=== PATIENT | female | born 1960 | race Two or more races ===

== ENCOUNTER → 2023-12-19 | Outpatient (CLI) | payer MEDICARE, BC, SELFPAY ==
[2023-12-19 15:00] LABS: Influenza A Ag Negative; Influenza B Ag Negative
== END | disposition home or self-care (01) ==
LOC: SLDO 11:52
PROVIDERS: PCP Specialist; Referring Provider Specialist; Visit Provider Specialist
DX: R05.8 Other specified cough (principal); Z20.828 Contact with and (suspected) exposure to other viral communicable diseases
CPT/HCPCS: 87502

== ENCOUNTER 2023-12-21 10:57 | Emergency (ER) | payer MEDICARE, BC, SELFPAY ==
[2023-12-21] VITALS (11 sets, daily range): BP systolic 161–214; BP diastolic 79–88; PULSE 64–73; RESP 16–22; TEMP 36.7–37.7; O2SAT 96–100; BMI 24.4
--- NOTE | 2023-12-21 11:33 | PD.EDRME ---
Rapid Medical Screening Exam RME Arrival date/time: 12/21/23 10:57 63-year-old female presents to the emergency department with complaints of low hemoglobin sent over by her dialysis center for possible blood transfusion. I have greeted and performed a focused initial assessment of this patient. Initial appropriate labs ordered at this time. A comprehensive ED assessment and evaluation of the patient and analysis of all test and completion of medical decision making process will be conducted by additional ED provider. Chief Complaint: Recheck/Abnormal Lab/Rx Time Seen by Provider: 12/21/23 11:02 Vital signs: Vital Signs Temperature 98.1 F 12/21/23 11:11 Pulse Rate 73 12/21/23 11:11 Respiratory Rate 19 12/21/23 11:11 Blood Pressure 165/80 H 12/21/23 11:11 Pulse Oximetry (%) 96 12/21/23 11:11 Oxygen Delivery Method Room Air 12/21/23 11:11
[2023-12-21 11:47] LABS: Basophils % (Auto) 0 % (0-2.5); Eosinophils # (Auto) 0.1 Thou/mm3 (0.0-0.5); Eosinophils % (Auto) 2 % (0-10); Immature Granulocytes % (Auto) 0 % (0-0); Immature Granulocytes Auto 0.02 Thou/mm3 (0.00-0.00); Lymphocytes # (Auto) 0.7 Thou/mm3 (1.0-4.8); Lymphocytes % (Auto) 10 % (10-50); Mean Corpuscular HGB Conc 33.3 g/dl (31.0-37.0); Mean Corpuscular Hemoglobin 31.3 pg (25.0-35.0); Mean Corpuscular Volume 94 fL (80-100); Monocytes # (Auto) 0.7 Thou/mm3 (0.0-0.8); Monocytes % (Auto) 10 % (0-12); Neutrophils # (Auto) 5.3 Thou/mm3 (1.8-7.7); Neutrophils % (Auto) 77 % (37-80); Nucleated Red Blood Cell % 0 /100 WBC (0); Platelet Count 143 Thou/mm3 (140-440); RDW Standard Deviation 45.8 fL (36.4-46.3); Red Blood Count 2.24 Miln/mm3 (4.00-5.20); White Blood Count 6.9 Thou/mm3 (3.6-11.0)
[2023-12-21 12:02] LABS: INR 1.1 (0.9-1.3); Prothrombin Time 12.4 Seconds (9.0-12.2)
[2023-12-21 12:06] LABS: Alanine Aminotransferase 37 U/L (10-49); Albumin, Serum 4.7 gm/dL (3.4-4.8); Albumin/Globulin Ratio 2.4 (1.2-2.2); Alkaline Phosphatase 66 U/L (46-116); Anion Gap 8 (7-16); Aspartate Amino Transferase 27 U/L (0-34); BUN/Creatinine Ratio 5 Ratio (12-20); Bilirubin,Total 0.7 mg/dL (0.3-1.2); Blood Urea Nitrogen 41 mg/dL (9-23); Calcium 9.4 mg/dL (8.3-10.6); Calcium (Corrected) 9.4 mg/dL (8.5-10.1); Carbon Dioxide 32.5 mMol/L (20.0-31.0); Chloride 99 mMol/L (98-107); Creatinine (Component) 8.8 mg/dL (0.6-1.3); Glucose 112 mg/dL (74-106); Osmolality,Calculated 288 (275-295); Sodium 139 mMol/L (136-145); Total Protein 6.7 gm/dL (5.7-8.2); eGFR 5 See Note
--- NOTE | 2023-12-21 12:25 | PD.EDRECHK ---
ED Recheck Abnl Lab Rx-RME/HPI General Chief Complaint: Recheck/Abnormal Lab/Rx Stated Complaint: LOW HGB Time Seen by Provider: 12/21/23 11:02 Arrival date/time: 12/21/23 10:57 RME / HPI RME / HPI narrative: 63-year-old female patient with significant history of hypertension end-stage renal disease on hemodialysis, was brought in by family for evaluation regarding request for blood transfusion. Patient had hemodialysis yesterday, and was advised to come to the emergency room today because his hemoglobin yesterday was noted to be 6.6. Patient complained of easy fatigability. Patient denies any shortness of breath. Patient denies any vomiting blood or blood in the stool. Related Data Home Medications ?Medication ?Instructions ?Recorded ?Confirmed montelukast 10 mg tablet 10 mg PO HS #0 tabs 04/10/15 12/15/22 (Singulair) zolpidem 5 mg tablet (Ambien) 5 mg PO HS #0 tabs 04/10/15 12/15/22 sevelamer carbonate 800 mg tablet 1,600 mg PO TIDWM #0 tabs 11/25/15 12/15/22 (Renvela) lidocaine 4 % topical cream 5 gm TP MWF ##0 08/25/16 12/15/22 metoprolol succinate 50 mg 50 mg PO BID ##0 08/25/16 12/15/22 tablet,extended release 24 hr (Toprol XL) albuterol sulfate 90 mcg/actuation 90 mcg IH PRN PRN SHORTNESS OF 10/12/16 12/15/22 breath activated powder inhaler BREATH ##0 (ProAir RespiClick) atorvastatin 40 mg tablet (Lipitor) 40 mg PO HS #0 tabs 10/12/16 12/15/22 Lactobacillus acidophilus 10 10,000 mmu cells PO QDAY 08/19/20 12/15/22 billion cell capsule (Probiotic) azilsartan medoxomil 40 1 tab PO QDAY 08/19/20 12/15/22 mg-chlorthalidone 25 mg tablet (Edarbyclor) cholecalciferol (vitamin D3) 25 25 mcg PO QDAY 08/19/20 12/15/22 mcg (1,000 unit) capsule (Vitamin D3) clonidine HCl 0.1 mg tablet 0.1 mg PO DAILY 08/19/20 12/15/22 dexlansoprazole 60 mg 60 mg PO DAILY 08/19/20 12/15/22 capsule,biphase delayed release (Dexilant) levothyroxine 50 mcg tablet 50 mcg PO DAILY 08/19/20 12/15/22 lorazepam 0.5 mg tablet 0.5 mg PO Q8HR PRN Anxiety 08/19/20 12/15/22 methylcellulose (with sugar) oral 1 ea PO PRN PRN Constipation 08/19/20 12/15/22 powder packet simethicone 180 mg capsule (Gas-X 180 mg PO QID PRN Heartburn 08/19/20 12/15/22 Ultra-Strength) amlodipine 5 mg tablet 5 mg PO HS 10/06/22 12/15/22 cyclosporine 0.05 % eye drops in a 1 drp ophthalmic (eye) PRN PRN Dry 10/06/22 12/15/22 dropperette (Restasis) Eye(S) levocetirizine 5 mg tablet (Xyzal) 5 mg PO QDAY 10/06/22 12/15/22 ropinirole 0.5 mg tablet 0.5 mg PO HS PRN Restless Leg(S) 10/06/22 12/15/22 folic acid 1 mg tablet 1 mg PO QDAY 12/15/22 12/15/22 vitamin B complex-vitamin C-folic 1 tab PO USEASDIRECTD 12/15/22 12/15/22 acid 0.8 mg tablet (Damaris-Mauricio) Allergies Allergy/AdvReac Type Severity Reaction Status Date / Time adhesive tape Allergy Mild Itching Verified 12/15/22 08:18 hydralazine Allergy Verified 12/15/22 08:18 ondansetron [From Zofran] Allergy Verified 12/15/22 08:18 Review of Systems Review of Systems Narrative Review of Systems: Review of system reviewed and within normal limits except mentioned in HPI ED Exam Narrative Physical exam: VITAL SIGNS: Reviewed. GENERAL APPEARANCE: Alert and interactive, follows commands, no acute distress, HEAD AND FACE: Non-traumatic. ENT: PERRL, pale conjunctiva, eyelid no trauma, NECK: Supple, nontender, no nuchal rigidity. CHEST: No tenderness, no crepitus, no paradoxical movement, no retractions. LUNGS: Clear, well ventilated, symmetric, no rales, no wheezing, no ronchi, no stridor, good breath sounds bilaterally. HEART: Regular rate, regular rhythm, no murmur, no gallops. RECTAL: Deferred. GENITAL: Deferred. NEUROLOGICAL: Gross motor function intact sensory function intact, Appropriate for age. MUSCULOSKELETAL: low back nontender, full range of motion. EXTREMITIES: Nontender, full range of motion. SKIN: Color pale, dry, no rash, no lacerations, no abrasions, no contusions. LYMPHATICS: Deferred. Course Quality Measures none Orders Category Date Time Status Transfuse,blood/blood products ONCE Care 12/21/23 12:24 Active CBC Stat Lab 12/21/23 11:38 Completed CMP [Comprehensive Metabolic Panel] Stat Lab 12/21/23 11:38 Completed PT [Prothrombin Time with INR] Stat Lab 12/21/23 11:38 Completed Type and Screen Stat Lab 12/21/23 11:38 Completed prbc [Red Blood Cells] Stat Lab 12/21/23 11:38 Completed Metoclopramide [Reglan] Med 12/21/23 20:58 Discontinued 10 mg PO X1 ONE Metoprolol Succinate Xl [Toprol Xl] Med 12/21/23 20:43 Discontinued 50 mg PO X1 ONE amLODIPine BESYLATE [Norvasc] Med 12/21/23 20:43 Discontinued 5 mg PO X1 ONE cloNIDine HCL [Catapres] Med 12/21/23 18:03 Discontinued 0.2 mg PO X1 ONE Vital Signs Vital signs: Vital Signs Temperature 98.1 F 12/21/23 11:11 Pulse Rate 73 12/21/23 11:11 Respiratory Rate 19 12/21/23 11:11 Blood Pressure 165/80 H 12/21/23 11:11 Pulse Oximetry (%) 96 12/21/23 11:11 Oxygen Delivery Method Room Air 12/21/23 11:11 Recheck / Abnormal Lab / Rx Patient data External records reviewed:: None Clinical information provided by:: none Social determinants that could affect healthcare access:: none Patient has the following chronic illnesses:: ESRD How is presenting disease/condition affected by chronic disease/condition?: exacerbated by Evaluation data The following diagnostics were reviewed and interpreted by me:: lab results Lab and/or radiology exams considered but not ordered:: None Interpretation Summary: Patient's hemoglobin was noted to be 7.0. The rest of the labs is significant for end-stage renal disease potassium is normal Medications / Prescriptions Medications or Prescriptions considered but not ordered:: none Medication administrations:: Medication Administration History Discontinued Medications Amlodipine Besylate (Amlodipine Besylate 5 Mg Tablet) 5 mg PO X1 ONE Stop: 12/21/23 20:44 Last Admin: 12/21/23 20:54 Dose: 5 mg Documented By: DD Clonidine (Clonidine Hcl 0.1 Mg Tablet) 0.2 mg PO X1 ONE Stop: 12/21/23 18:04 Last Admin: 12/21/23 19:06 Dose: 0.2 mg Documented By: DD Metoclopramide HCl (Metoclopramide 5 Mg Tablet) 10 mg PO X1 ONE Stop: 12/21/23 20:59 Last Admin: 12/21/23 21:05 Dose: 10 mg Documented By: DD Metoprolol Succinate (Metoprolol Succinate Xl 25 Mg Tabcr) 50 mg PO X1 ONE Stop: 12/21/23 20:44 Last Admin: 12/21/23 20:54 Dose: 50 mg Documented By: DD Patient received 2 units of packed RBC. Patient was also given amlodipine and clonidine Reglan and metoprolol. Consultations Consultation(s) initiated? (list below): No Diagnosis Recheck Differential Diagnosis: other (Anemia of chronic disease, hypertension, iron deficiency anemia) Most likely diagnosis given after review of the tests above:: Anemia of chronic disease Admission Indicated Admission indicated?: not indicated Admission Request Was there a request for admission?: No Disposition Plan Disposition Plan: Discharge Discharge Attestation Discharge Attestation: The patient was given an opportunity to ask questions and understood the discharge instructions. Discharge instructions specifically effects, indications for sooner follow up or return to the emergency department, and the expected course of current diagnosis. Patient condition: Stable Discharge Plan Plan Patient Disposition: HOME (Self Care) Disposition Comment: stable Prescriptions/Referrals Prescriptions/Med Rec: No Action montelukast [Singulair] 10 MG tablet 10 mg PO HS Qty: 0 Rx Instructions: TAKES ON T, JOES, SAT, SUN zolpidem [Ambien] 5 MG tablet 5 mg PO HS Qty: 0 Hold Instructions: Resume on 12/16/22. sevelamer carbonate [Renvela] 800 MG tablet 1,600 mg PO TIDWM Qty: 0 metoprolol succinate [Toprol XL] 50 MG tablet extended release 24 hr 50 mg PO BID Qty: 0 lidocaine 5 GM cream 5 gm TP MWF Qty: 0 atorvastatin [Lipitor] 40 MG tablet 40 mg PO HS Qty: 0 ProAir RespiClick 90 MCG aerosol powdr breath activated 90 mcg IH PRN PRN (Reason: SHORTNESS OF BREATH) Qty: 0 clonidine HCl 0.1 mg tablet 0.1 mg PO DAILY simethicone [Gas-X Ultra-Strength] 180 mg Capsule 180 mg PO QID PRN (Reason: Heartburn) lorazepam 0.5 mg tablet 0.5 mg PO Q8HR PRN (Reason: Anxiety) Hold Instructions: Resume on 12/16/22. Patient Comments: TAKE 1 TABLET BY MOUTH EVERY 8 HOURS NEEDED FOR ANXIETY (NO AMBIEN ON THE SAME DAY ) levothyroxine 50 mcg tablet 50 mcg PO DAILY Patient Comments: TAKE 1 TABLET BY MOUTH EVERY DAY cholecalciferol (vitamin D3) [Vitamin D3] 25 mcg (1,000 unit) Capsule 25 mcg PO QDAY Rx Instructions: methylcellulose (with sugar) Powder In Packet 1 ea PO PRN PRN (Reason: Constipation) dexlansoprazole [Dexilant] 60 mg capsule,biphase delayed releas 60 mg PO DAILY Edarbyclor 40-25 mg Tablet 1 tab PO QDAY Probiotic 10 billion cell Capsule 10,000 mmu cells PO QDAY amlodipine 5 mg Tablet 5 mg PO HS ropinirole 0.5 mg Tablet 0.5 mg PO HS PRN (Reason: Restless Leg(S)) cyclosporine [Restasis] 0.05 % Dropperette 1 drp OPHTHALMIC (EYE) PRN PRN (Reason: Dry Eye(S)) Rx Instructions: both eyes levocetirizine [Xyzal] 5 mg Tablet 5 mg PO QDAY Patient Comments: folic acid 1 mg tablet 1 mg PO QDAY Patient Comments: TAKE 1 TABLET BY MOUTH EVERY DAY Damaris-Mauricio 0.8 mg tablet 1 tab PO USEASDIRECTD Patient Comments: TAKE 1 TABLET BY MOUTH EVERY DAY Rx Instructions: Referrals: Rayray Elias MD [Primary Care Provider] - In 1 week Problem List Clinical Impression: Anemia Patient/Caregiver Discharge Instructions Discharge Activity: activity as tolerated Education Materials: Anemia Additional Instructions: Thank you for the opportunity for serving you today. You are stable for discharged . You are advised to: Follow-up with your PCP in 1 to 2 days Return to ED for worsening of symptoms Print Language: Liberian Stand Alone Forms: Bhumi Award Info., Patient Portal Info Letter PA/DIRECTOR BEHAVIORAL HEALTH Supervising Physician PA/DIRECTOR BEHAVIORAL HEALTH Supervising Physician: MD Juan Pablo
[2023-12-21] MEDS: cloNIDine HCL 0.1 MG TABLET 0.2 MG PO (19:06)
[2023-12-21] MEDS: METOPROLOL SUCCINATE XL 25 MG TABCR 50 MG PO (20:54)
[2023-12-21] MEDS: amLODIPine BESYLATE 5 MG TABLET PO (20:54)
[2023-12-21] MEDS: METOCLOPRAMIDE 5 MG TABLET 10 MG PO (21:05)
== END 2023-12-21 22:49 | disposition home or self-care (01) ==
PROVIDERS: Nurse Practitioner Primary Care; Emergency Provider Emergency Medicine; PCP Specialist
DX: I12.0 Hypertensive chronic kidney disease with stage 5 chronic kidney disease or end stage renal disease (principal); N18.6 End stage renal disease; D63.1 Anemia in chronic kidney disease; Z99.2 Dependence on renal dialysis
CPT/HCPCS: 36415; 36430; 80053; 85025; 85610; 86850; 86900; 86901; 86923; 99285; P9016; A9270

== ENCOUNTER → 2024-04-09 | Outpatient (CLI) | payer MEDICARE, SELFPAY ==
[2024-04-09 13:09] LABS: Influenza A Ag Negative; Influenza B Ag Negative
== END | disposition home or self-care (01) ==
LOC: SLDO 11:36
PROVIDERS: Referring Provider Specialist; Visit Provider Specialist
DX: R05.9 Cough, unspecified (principal)
CPT/HCPCS: 87502

== ENCOUNTER → 2024-04-10 | Outpatient (CLI) | payer MEDICARE, BC, SELFPAY ==
--- NOTE | 2024-04-10 13:13 | XR_ITS ---
Examination: PA lateral chest 2 views TECHNIQUE: Upright PA lateral chest 2 views Exam date and time: April 10, 2024 1347 hours INDICATIONS: Shortness of breath beginning 3 weeks ago. FINDINGS: Mild enlargement cardiac contour Prominent central vascular engorgement Moderate bilateral pleural effusions No lobar pneumonia IMPRESSION: Moderate bilateral pleural effusions
[2024-04-10 14:28] LABS: Basophils # (Auto) 0.1 Thou/mm3 (0.0-0.2); Basophils % (Auto) 1 % (0-2.5); Eosinophils # (Auto) 0.1 Thou/mm3 (0.0-0.5); Eosinophils % (Auto) 2 % (0-10); Hematocrit 31.6 % (36.0-46.0); Immature Granulocytes % (Auto) 0 % (0-0); Immature Granulocytes Auto 0.03 Thou/mm3 (0.00-0.00); Lymphocytes # (Auto) 0.7 Thou/mm3 (1.0-4.8); Lymphocytes % (Auto) 9 % (10-50); Mean Corpuscular HGB Conc 31.6 g/dl (31.0-37.0); Mean Corpuscular Volume 95 fL (80-100); Monocytes # (Auto) 0.6 Thou/mm3 (0.0-0.8); Monocytes % (Auto) 8 % (0-12); Neutrophils # (Auto) 5.9 Thou/mm3 (1.8-7.7); Neutrophils % (Auto) 80 % (37-80); Nucleated Red Blood Cell % 0 /100 WBC (0); Platelet Count 235 Thou/mm3 (140-440); RDW Standard Deviation 52.4 fL (36.4-46.3); Red Blood Count 3.33 Miln/mm3 (4.00-5.20); White Blood Count 7.4 Thou/mm3 (3.6-11.0)
[2024-04-10 14:49] LABS: D-Dimer < 250 ng/mL (<600)
[2024-04-10 14:50] LABS: B-Type Natriuretic Peptide 3159 pg/mL (0-100)
[2024-04-10 14:52] LABS: Alanine Aminotransferase 50 U/L (10-49); Albumin, Serum 4.6 gm/dL (3.4-4.8); Albumin/Globulin Ratio 2.9 (1.2-2.2); Alkaline Phosphatase 106 U/L (46-116); Anion Gap 8 (7-16); Aspartate Amino Transferase 40 U/L (0-34); BUN/Creatinine Ratio 3 Ratio (12-20); Bilirubin,Total 0.8 mg/dL (0.3-1.2); Blood Urea Nitrogen 14 mg/dL (9-23); Calcium 10.2 mg/dL (8.3-10.6); Calcium (Corrected) 10.2 mg/dL (8.5-10.1); Carbon Dioxide 35.4 mMol/L (20.0-31.0); Chloride 103 mMol/L (98-107); Creatinine (Component) 4.3 mg/dL (0.6-1.3); Globulin 1.6 gm/dL (2.3-3.5); Glucose 101 mg/dL (74-106); Osmolality,Calculated 291 (275-295); Sodium 146 mMol/L (136-145); Total Protein 6.2 gm/dL (5.7-8.2); Troponin I 0.021 ng/mL (0.0-0.045); eGFR 11 See Note
== END | disposition home or self-care (01) ==
LOC: COPL 13:03
PROVIDERS: PCP Specialist; Referring Provider Specialist; Visit Provider Specialist
DX: J90 Pleural effusion, not elsewhere classified (principal)
CPT/HCPCS: 36415; 71046; 80053; 80061; 83880; 84484; 85025; 85379

== ENCOUNTER → 2024-04-16 | Outpatient (CLI) | payer MEDICARE, BC, SELFPAY ==
--- NOTE | 2024-04-16 15:00 | XR_ITS ---
Examination: CT chest, without intravenous contrast. Sagittal and coronal 2-D reconstructions. Exam date and time: April 16, 2024 1512 hrs. Indications: Shortness of breath beginning one month ago CTDI:vol (mGy) 7.46 DLP: (mGycm) 266 Technique: Multiple 3.0 mm axial sections of the chest to been obtained. Bone and lung density settings are obtained. Sagittal and coronal 2-D reconstructions have been obtained. Low dose protocols were performed. One or more of the following dose reduction techniques were used; automated exposure control, adjustment of the mA and/or KV according to patient size, use of iterative reconstruction technique. Findings: No thoracic aortic cage is no dilatation Main pulmonary artery segment 33 mm No paratracheal tracheobronchial or bronchopulmonary adenopathy Moderate vascular congestion Bibasilar pneumonia with moderate right mild left pleural effusions Mild enlargement cardiac contour No visualized liver or splenic lesion Absent gallbladder End-stage atrophic kidneys Impression: Mild chronic heart failure pattern Bibasilar pneumonia with moderate right mild left pleural effusions
== END | disposition home or self-care (01) ==
PROVIDERS: Referring Provider Internal Medicine Rheumatology; Visit Provider Internal Medicine Rheumatology
DX: J84.9 Interstitial pulmonary disease, unspecified (principal)
CPT/HCPCS: 71250

== ENCOUNTER → 2024-05-07 | Outpatient (CLI) | payer MEDICARE, BC, SELFPAY ==
--- NOTE | 2024-05-07 | XR_ITS ---
Examination: PA lateral chest 2 views TECHNIQUE: Upright PA lateral chest 2 views Exam date and time: May 07, 2024 1238 hours Comparison April 10, 2024 INDICATIONS: Coughing congestion beginning 6 weeks ago. FINDINGS: Mild chronic heart failure pattern Mild enlargement left ventricle Prominent vascular congestion with small to moderate bilateral pleural effusions No pneumonia IMPRESSION: Mild chronic heart failure pattern
[2024-05-07 13:30] LABS: B-Type Natriuretic Peptide 2332 pg/mL (0-100)
== END | disposition home or self-care (01) ==
LOC: CDIM 11:54 → COPL 12:43
PROVIDERS: PCP Specialist; Referring Provider Specialist; Visit Provider Specialist
DX: I50.9 Heart failure, unspecified (principal); R06.02 Shortness of breath
CPT/HCPCS: 36415; 71046; 83880

== ENCOUNTER → 2024-05-27 | Outpatient (CLI) | payer MEDICARE, BC, SELFPAY ==
--- NOTE | 2024-05-27 12:08 | XR_ITS ---
Examination: PA lateral chest 2 views TECHNIQUE: Upright PA lateral chest 2 views Exam date and time: May 27, 2024 1319 hours Comparison May 07, 2024 INDICATIONS: Coughing beginning 2 days ago. FINDINGS: Mild enlargement cardiac contour Prominent pulmonary vasculature Mild pneumonia left base with small left pleural effusion IMPRESSION: Mild pneumonia left base
[2024-05-27 14:40] LABS: Basophils # (Auto) 0.1 Thou/mm3 (0.0-0.2); Basophils % (Auto) 1 % (0-2.5); Eosinophils # (Auto) 0.3 Thou/mm3 (0.0-0.5); Eosinophils % (Auto) 3 % (0-10); Hematocrit 33.2 % (36.0-46.0); Hemoglobin 10.7 g/dL (12.0-16.0); Immature Granulocytes % (Auto) 1 % (0-0); Immature Granulocytes Auto 0.09 Thou/mm3 (0.00-0.00); Lymphocytes # (Auto) 0.9 Thou/mm3 (1.0-4.8); Lymphocytes % (Auto) 8 % (10-50); Mean Corpuscular HGB Conc 32.2 g/dl (31.0-37.0); Mean Corpuscular Hemoglobin 29.2 pg (25.0-35.0); Mean Corpuscular Volume 91 fL (80-100); Monocytes # (Auto) 1.4 Thou/mm3 (0.0-0.8); Monocytes % (Auto) 12 % (0-12); Neutrophils # (Auto) 8.5 Thou/mm3 (1.8-7.7); Neutrophils % (Auto) 76 % (37-80); Nucleated Red Blood Cell % 0 /100 WBC (0); Platelet Count 223 Thou/mm3 (140-440); RDW Standard Deviation 57.6 fL (36.4-46.3); Red Blood Count 3.66 Miln/mm3 (4.00-5.20); White Blood Count 11.3 Thou/mm3 (3.6-11.0)
[2024-05-27 14:47] LABS: Alanine Aminotransferase 54 U/L (10-49); Albumin, Serum 4.7 gm/dL (3.4-4.8); Alkaline Phosphatase 125 U/L (46-116); Anion Gap 13 (7-16); Aspartate Amino Transferase 43 U/L (0-34); BUN/Creatinine Ratio 4 Ratio (12-20); Bilirubin,Total 0.8 mg/dL (0.3-1.2); Blood Urea Nitrogen 36 mg/dL (9-23); Calcium 9.6 mg/dL (8.3-10.6); Calcium (Corrected) 9.6 mg/dL (8.5-10.1); Carbon Dioxide 28.8 mMol/L (20.0-31.0); Chloride 98 mMol/L (98-107); Creatinine (Component) 8.5 mg/dL (0.6-1.3); Globulin 2.3 gm/dL (2.3-3.5); Glucose 104 mg/dL (74-106); Osmolality,Calculated 287 (275-295); Potassium 3.3 mMol/L (3.4-5.1); Sodium 140 mMol/L (136-145); eGFR 5 See Note
== END | disposition home or self-care (01) ==
LOC: CDIM 11:59 → COPL 13:30
PROVIDERS: PCP Specialist; Referring Provider Specialist; Visit Provider Specialist
DX: N18.6 End stage renal disease (principal); Z99.2 Dependence on renal dialysis
CPT/HCPCS: 36415; 71046; 80053; 83880; 85025

== ENCOUNTER → 2024-08-13 | Outpatient (CLI) | payer MEDICARE, BC, SELFPAY ==
--- NOTE | 2024-08-13 | XR_ITS ---
Examination: Abdomen AP single view Technique: AP portable supine abdomen, single view Exam date and time: August 13, 2024 1107 hours INDICATIONS: Abdominal pain bloating tenderness and diarrhea several years FINDINGS: Large mesencephalic: No obstruction. No free air. Surgical clips upper right abdomen IMPRESSION: Large amount stool throughout the colon
[2024-08-13 12:28] LABS: Basophils # (Auto) 0.1 Thou/mm3 (0.0-0.2); Basophils % (Auto) 2 % (0-2.5); Eosinophils # (Auto) 0.3 Thou/mm3 (0.0-0.5); Eosinophils % (Auto) 5 % (0-10); Hematocrit 42.7 % (36.0-46.0); Hemoglobin 14.1 g/dL (12.0-16.0); Immature Granulocytes Auto 0.01 Thou/mm3 (0.00-0.00); Lymphocytes # (Auto) 0.9 Thou/mm3 (1.0-4.8); Lymphocytes % (Auto) 19 % (10-50); Mean Corpuscular HGB Conc 33.0 g/dl (31.0-37.0); Mean Corpuscular Hemoglobin 29.5 pg (25.0-35.0); Mean Corpuscular Volume 89 fL (80-100); Monocytes # (Auto) 0.6 Thou/mm3 (0.0-0.8); Monocytes % (Auto) 11 % (0-12); Neutrophils # (Auto) 3.2 Thou/mm3 (1.8-7.7); Neutrophils % (Auto) 63 % (37-80); Nucleated Red Blood Cell # 0.00 Thou/mm3 (0.00-0.00); Nucleated Red Blood Cell % 0 /100 WBC (0); Platelet Count 103 Thou/mm3 (140-440); RDW Standard Deviation 52.3 fL (36.4-46.3); Red Blood Count 4.78 Miln/mm3 (4.00-5.20); White Blood Count 5.0 Thou/mm3 (3.6-11.0)
[2024-08-13 12:47] LABS: Alanine Aminotransferase 43 U/L (10-49); Albumin, Serum 4.3 gm/dL (3.4-4.8); Albumin/Globulin Ratio 1.0 (1.2-2.2); Alkaline Phosphatase 85 U/L (46-116); Amylase 175 U/L (30-118); Anion Gap 13 (7-16); Aspartate Amino Transferase 49 U/L (0-34); BUN/Creatinine Ratio 5 Ratio (12-20); Bilirubin,Total 0.5 mg/dL (0.3-1.2); Blood Urea Nitrogen 28 mg/dL (9-23); Calcium 10.3 mg/dL (8.3-10.6); Calcium (Corrected) 10.3 mg/dL (8.5-10.1); Carbon Dioxide 30.7 mMol/L (20.0-31.0); Chloride 97 mMol/L (98-107); Creatinine (Component) 6.2 mg/dL (0.6-1.3); Globulin 4.4 gm/dL (2.3-3.5); Glucose 100 mg/dL (74-106); Lipase 99 U/L (12-53); Osmolality,Calculated 286 (275-295); Potassium 4.1 mMol/L (3.4-5.1); Sodium 141 mMol/L (136-145); Total Protein 8.7 gm/dL (5.7-8.2); eGFR 7 See Note
== END | disposition home or self-care (01) ==
LOC: CDIM 10:57 → COPL 11:25
PROVIDERS: PCP Specialist; Referring Provider Specialist; Visit Provider Specialist
DX: K59.00 Constipation, unspecified (principal); E78.5 Hyperlipidemia, unspecified
CPT/HCPCS: 36415; 74018; 80053; 81001; 82150; 83690; 85025

== ENCOUNTER → 2024-08-14 | Outpatient (CLI) | payer MEDICARE, BC, SELFPAY ==
[2024-08-14 13:39] LABS: Collection Type, Urine Clean Catch
[2024-08-14 14:49] LABS: Bacteria,Urine Rare; Bilirubin,Urine Negative (Negative); Blood,Urine Negative (Negative); Clarity,Urine Turbid (Clear/Hazy); Color,Urine Lt-Yellow (Lt Yel-Yel); Glucose, Urine 1+ (Negative); Ketones,Urine Negative (Negative); Leukocyte Esterase,Urine Positive (Negative); Nitrite,Urine Negative (Negative); PH,Urine 8.5 (5.0-7.0); Protein,Urine 2+ (Neg - Trace); RBC,Urine 2 /hpf (0-3); Specific Gravity,Urine 1.007 (1.001-1.035); Squamous Epithelial Cell,Urine 1 /hpf (0-5); Urobilinogen,Urine Negative mg/dL (0.0-1.0); WBC,Urine 4 /hpf (0-5)
== END | disposition home or self-care (01) ==
LOC: SLDO 13:31
PROVIDERS: Referring Provider Specialist; Visit Provider Specialist
DX: E78.5 Hyperlipidemia, unspecified (principal)
CPT/HCPCS: 81001

== ENCOUNTER → 2024-08-29 | Outpatient (CLI) | payer MEDICARE, BC, SELFPAY ==
--- NOTE | 2024-08-29 14:30 | XR_ITS ---
Examination: Screening digital mammography, bilateral Computer aided detection 3-D breast Tomosynthesis, bilateral Date and time of exam: August 29, 2024 1425 hours Compared to mammograms dating to February 09, 2023 Indication: Screening Technique: Nonmagnified MLO, CC views of the breasts to been obtained, reconstructed from 3-D Tomosynthesis images. R2 computer aided detection program utilized for evaluation of suspicious masses and/or abnormal calcifications. 3-D Tomosynthesis images obtained. Findings: Scattered areas of fibroglandular density. More prominent microcalcifications upper outer quadrant right breast 10 mm nodule indistinct margins upper outer right breast Additional focus microcalcifications inner lower right breast Impression: BI-RADS Category 0: Incomplete: Additional imaging evaluation Recommend follow-up spot tomographic views of microcalcifications upper outer right breast and inner lower right breast Recommend follow-up spot tomographic views of 10 mm nodule indistinct margins upper outer right breast Recommend bilateral breast sonography follow-up to complete the workup
== END | disposition home or self-care (01) ==
PROVIDERS: PCP Specialist; Referring Provider Specialist; Visit Provider Specialist
DX: Z12.31 Encounter for screening mammogram for malignant neoplasm of breast (principal); N63.11 Unspecified lump in the right breast, upper outer quadrant; R92.0 Mammographic microcalcification found on diagnostic imaging of breast
CPT/HCPCS: 77063; 77067

== ENCOUNTER → 2024-09-03 | Outpatient (CLI) | payer MEDICARE, BC, SELFPAY ==
--- NOTE | 2024-09-03 09:27 | XR_ITS ---
Examination: Breast ultrasound complete, bilateral Date and time of exam: September 03, 2024, 0933 hours Mammogram August 29, 2024 10 mm nodule indistinct margins upper outer right breast Technique: Real-time grayscale ultrasonographic imaging bilateral breasts, including all 4 quadrants as well as nipple retroareolar and axillary regions. Findings: Sonographic images right breast 10:00 nodule spiculated margins 11 x 11 mm Sonographic images left breast No cystic or solid mass IMPRESSION: BI-RADS Category 4: Suspicious for malignancy Suspicious mass 10:00 position right breast Biopsy of this mass is needed to exclude breast carcinoma, the mass is amenable to ultrasound-guided breast biopsy for diagnosis
--- NOTE | 2024-09-03 09:29 | XR_ITS ---
Examination: Diagnostic digital mammography, unilateral, right Computer aided detection 3-D breast Tomosynthesis, unilateral Date and time of exam: September 03, 2024 0952 hours INDICATIONS: Mammogram August 29, 2024 microcalcifications upper outer right breast and inner lower right breast, 10 mm suspicious nodule upper outer right breast Technique: Nonmagnified MLO, CC views of the right breast have been obtained, reconstructed from 3-D Tomosynthesis images. R2 computer aided detection program utilized for evaluation of suspicious masses and/or abnormal calcifications. 3-D Tomosynthesis images obtained. Findings: Scattered areas of fibroglandular density. Suspicious nodule is confirmed upper outer right breast, also noted on the right breast sonogram today Scattered microcalcifications but no grouped suspicious microcalcifications Impression: BI-RADS category : Suspicious for malignancy Suspicious mass 11 mm upper outer right breast, also depicted on right breast sonogram today, biopsy is needed to exclude breast carcinoma, this mass is amenable to ultrasound-guided breast biopsy for diagnosis
== END | disposition home or self-care (01) ==
LOC: CDIM 09:07
PROVIDERS: PCP Specialist; Referring Provider Specialist; Visit Provider Specialist
DX: N63.11 Unspecified lump in the right breast, upper outer quadrant (principal); R92.8 Other abnormal and inconclusive findings on diagnostic imaging of breast
CPT/HCPCS: 76641; 77061; 77065; G0279

== ENCOUNTER → 2024-09-12 | Outpatient (CLI) | payer MEDICARE, BC, SELFPAY ==
--- NOTE | 2024-09-12 | XR_ITS ---
Examination: PA lateral chest 2 views TECHNIQUE: Upright PA lateral chest 2 views Date and time: September 12, 2024 12:11 PM INDICATIONS: Shortness of breath 8 months. FINDINGS: Mild enlargement cardiac contour Prominent vascular congestion No lobar pneumonia or pulmonary edema Prominent osteopenia Right internal jugular Port-A-Cath tip SVC satisfactory position IMPRESSION: Moderate vascular congestion Suspicious for pulmonary artery hypertension
== END | disposition home or self-care (01) ==
LOC: CDIM 11:30
PROVIDERS: PCP Specialist; Referring Provider Specialist; Visit Provider Specialist
DX: R09.89 Other specified symptoms and signs involving the circulatory and respiratory systems (principal)
CPT/HCPCS: 71046

== ENCOUNTER → 2024-09-24 | Outpatient (CLI) | payer MEDICARE, BC, SELFPAY ==
--- NOTE | 2024-09-24 15:59 | XR_ITS ---
MRI abdomen, without contrast. MRCP Date and time of exam: September 23, 2024 1647 hours INDICATIONS: Upper abdominal pain bloating distention beginning 2010, enlarged common hepatic duct on MRCP September 16, 2021 Technique: Multiple axial and coronal images of the abdomen have been obtained with the Siemens 1.5T MRI scanner. Images obtained included T1 weighted transverse images, T2-weighted transverse images, T2-weighted transverse images fat-suppressed, T2 weighted haste fat suppressed transverse images, T1 weighted images, in and out of phase images, T2-weighted coronal images, breath hold, T2 weighted haze coronal images as well as T2 weighted coronal thick slab images, MRCP. Findings: Hepatomegaly 16 cm with intrahepatic biliary tract dilatation Absent gallbladder Common hepatic duct 8 mm No common hepatic or common bile duct stones No pancreatic mass or dilated pancreatic duct No peripancreatic edema Spleen is not enlarged Aorta normal size End-stage atrophic kidneys No ascites No bowel obstruction IMPRESSION: Mild hepatomegaly Common hepatic duct 8 mm, no common hepatic or common bile duct stones No pancreatic mass or dilated pancreatic duct Severely atrophic [facility] kidneys, clinical correlation advised Negative for ascites
== END | disposition home or self-care (01) ==
LOC: SDIM 15:43
PROVIDERS: PCP Specialist; Referring Provider Specialist; Visit Provider Specialist
DX: R16.0 Hepatomegaly, not elsewhere classified (principal); N26.1 Atrophy of kidney (terminal)
CPT/HCPCS: 74181

== ENCOUNTER → 2024-10-22 | Outpatient (CLI) | payer MEDICARE, BC, SELFPAY ==
--- NOTE | 2024-10-22 10:45 | XR_ITS ---
Examination: Thyroid sonography complete TECHNIQUE: Grayscale sonographic images thyroid lobes Date and time: October 23, 1999 2510 0 4:00 AM INDICATIONS: Globus sensation 4 months FINDINGS: Right thyroid 3.9 cm No solid nodules Left thyroid 2.9 cm. Upper pole nodule 10 x 6 mm, circumscribed Lower pole nodule 5 x 4 mm, circumscribed IMPRESSION: Left thyroid nodules as above
== END | disposition home or self-care (01) ==
PROVIDERS: PCP Specialist; Referring Provider Specialist; Visit Provider Specialist
DX: E04.2 Nontoxic multinodular goiter (principal)
CPT/HCPCS: 76536